=== PATIENT | male | born 1935 | race Caucasian/White ===

== ENCOUNTER 2017-12-15 11:17 | Emergency (ER) | payer MEDICARE ==
[~2017-12-15] VITALS: Ht 180.3 cm; Wt 81.0 kg
[~2017-12-15 11:17] MED LIST: AMIO200 PO; ASPI325T PO; CREO1200 PO; DOCU1CAP39 PO; METO25 PO; OMEP20TA39 PO; SUCR1TAB PO; TAB-TAB PO; TAMS0.4C67 PO; TRAM50TA PO; URSO300C3 PO; WARF1 PO
[2017-12-15 11:24] VITALS: BP 197/83; PULSE 55; RESP 16; TEMP 97.6; O2SAT 99
[2017-12-15] MEDS ORDERED: SODIUM CHLOR 0.9% 1000 ML INJ 1,000 ML IV SCH (11:44)
[2017-12-15] MEDS ORDERED: ONDANSETRON HCL 4 MG/2 ML VIAL IVP ONE (11:45)
[2017-12-15] MEDS ORDERED: DIATRIZOATE MEGLUM/DIATRIZOATE SOD 9 ML CUP PO ONE (11:45)
[2017-12-15] MEDS ORDERED: MORPHINE SULFATE 2 MG/ML INJ IV PUSH ONE ×2 (11:45→13:45)
[2017-12-15] MEDS ORDERED: SODIUM CHLORIDE 0.9% FLUSH 10 ML FLUSH IV FLUSH PRN (11:45)
--- NOTE | 2017-12-15 11:48 | PD ---
HPI Chief Complaint: Flank/Kidney Pain Time Seen by Provider: 11:35 Travel History International Travel<30 days: No Contact w/Intl Traveler<30days: No Traveled to known affect area: No History of Present Illness HPI 82-year-old male with history of CAD, CABG, pancreatic cancer status post Whipple in 2006, here for evaluation of right flank and right lower abdominal pain. Symptoms started this morning. Pain is constant, described as a dull ache, 8 out of 10, no modifying factors. He denies dysuria or hematuria. He had an apparently normal bowel movement this morning. He did have an episode of nausea this morning. He reports having similar pain about a week ago and took a leftover prescription of Flagyl which seemed to treat his symptoms. He is being followed at [facility] for his pancreatic cancer, currently not undergoing any specific treatment. 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) Hiatal Hernia: No Hypertension: Yes Immune Disorder: No Kidney Stones: No Musculoskeletal: Yes (arthroscopic surgery righ t knee) Neurologic: No Psychiatric: No Reproductive: No Respiratory: No Migraines: No Radiation Therapy: Yes (prostate) Renal Failure: No Seizures: No Sickle Cell Disease: No Sleep Apnea: No Thyroid Disease: No Ulcer: No Past Surgical History Abdominal Surgery: Yes (/hernia repair) AICD: No Arteriovenous Shunt: No Body Medical Devices: TAURUS pumps to sternum and left leg Cardiac Surgery: Yes (CABG) Ear Surgery: No Endocrine Surgery: No Eye Surgery: No Genitourinary Surgery: Yes (turp,radiation to prostate) Insulin Pump: No Joint Replacement: No Oral Surgery: Yes (wisdom teeth removed) Pacemaker: No Thoracic Surgery: Yes (sternotomy) Social History Alcohol Use: No Tobacco Use: No Substance Use: No Allergies-Medications (Allergen,Severity, Reaction): Coded Allergies: penicillin G (Unverified Allergy, Unknown, 12/15/17) Reported Meds & Prescriptions Reported Meds & Active Scripts Active Reported Non-Aspirin Extra Strength (Acetaminophen) 500 Mg Tab 1,000 Mg PO Q4-6H PRN Vitamin B-12 (Cyanocobalamin) 1,000 Mcg Tab 1,000 Mcg PO DAILY Multiple Vitamin 1 Tab 1 Tab PO DAILY Align (Lactobacillus Rhamnosus (GG)) 4 Mg (1 Billion Cell) Cap 4 Mg PO DAILY Welchol (Colesevelam HCl) 625 Mg Tab 625 Mg PO DAILY Aspirin Low Dose (Aspirin) 81 Mg Chew 81 Mg CHEW DAILY Bupropion HCl 75 Mg Tab 75 Mg PO DAILY Tamsulosin (Tamsulosin HCl) 0.4 Mg Cap 0.4 Mg PO HS Metoprolol Tartrate 25 Mg Tab 25 Mg PO BID Losartan (Losartan Potassium) 100 Mg Tab 100 Mg PO HS Pravastatin 40 Mg Tab 40 Mg PO HS Ursodiol 300 Mg Cap 300 Mg PO DAILY Sucralfate 1 Gram Tab 1 Gm PO QID on empty stomach Creon (Pancrelipase) 36,000-114,000-180,000 Units Cap 2 Cap PO TIDPC Omeprazole 20 Mg Tab 20 Mg PO DAILY Review of Systems Except as stated in HPI: all other systems reviewed are Neg Physical Exam Narrative GENERAL: Well-developed, well-nourished, comfortable, no apparent distress. SKIN: Focused skin assessment warm/dry. No rash. HEAD: Atraumatic. Normocephalic. EYES: Pupils equal and round. No scleral icterus. No injection or drainage. ENT: Mucous membranes pink and moist. NECK: Trachea midline. No JVD. CARDIOVASCULAR: Regular rate and rhythm. No murmur appreciated. RESPIRATORY: No accessory muscle use. Clear to auscultation. Breath sounds equal bilaterally. GASTROINTESTINAL: Abdomen soft, non-tender, nondistended. Reducible umbilical hernia. MUSCULOSKELETAL: No obvious deformities. No clubbing. No cyanosis. No edema. NEUROLOGICAL: Awake and alert. No obvious cranial nerve deficits. Motor grossly within normal limits. Normal speech. PSYCHIATRIC: Appropriate mood and affect; insight and judgment normal. Data Data Last Documented VS Vital Signs Date Time Temp Pulse Resp B/P (MAP) Pulse Ox O2 Delivery O2 Flow Rate FiO2 12/15/17 14:01 68 18 192/94 (126) 99 Room Air 12/15/17 11:24 97.6 Orders Orders Complete Blood Count With Diff (12/15/17 11:44) Comprehensive Metabolic Panel (12/15/17 11:44) Lipase (12/15/17 11:44) Lactic Acid (12/15/17 11:44) Prothrombin Time / Inr (Pt) (12/15/17 11:44) Act Partial Throm Time (Ptt) (12/15/17 11:44) Urinalysis - C+S If Indicated (12/15/17 11:44) Ct Abd/Pel W Iv Contrast(Rout) (12/15/17 11:44) Iv Access Insert/Monitor (12/15/17 11:44) Ecg Monitoring (12/15/17 11:44) Oximetry (12/15/17 11:44) Ondansetron Inj (Zofran Inj) (12/15/17 11:45) Sodium Chlor 0.9% 1000 Ml Inj (Ns 1000 M (12/15/17 11:44) Sodium Chloride 0.9% Flush (Ns Flush) (12/15/17 11:45) Morphine Inj (Morphine Inj) (12/15/17 11:45) Diatrizoate Liq ( Gastroview Liq) (12/15/17 11:45) Oral Contrast - Adult (12/15/17 12:13) Morphine Inj (Morphine Inj) (12/15/17 13:45) Iohexol 350 Inj (Omnipaque 350 Inj) (12/15/17 14:01) Urinary Catheter Insert/Apply (12/15/17 14:15) Labs Laboratory Tests Test 12/15/17 11:40 12/15/17 11:48 12/15/17 12:00 Urine Collection Type CLEAN CATCH Urine Color YELLOW Urine Turbidity CLEAR Urine pH 6.0 Urine Specific [place] 1.015 Urine Protein NEG mg/dL Urine Glucose (UA) NEG mg/dL Urine Ketones NEG mg/dL Urine Occult Blood NEG Urine Nitrite NEG Urine Bilirubin NEG Urine Urobilinogen 0.2 MG/DL Urine Leukocyte Esterase NEG Urine Squamous Epithelial Cells 0-5 /hpf Urine Amorphous Sediment FEW Microscopic Urinalysis Comment CULT NOT INDICATED Urine Collection Time 1140 White Blood Count 4.2 TH/MM3 Red Blood Count 3.86 MIL/MM3 Hemoglobin 11.9 GM/DL Hematocrit 36.3 % Mean Corpuscular Volume 94.0 FL Mean Corpuscular Hemoglobin 30.7 PG Mean Corpuscular Hemoglobin Concent 32.7 % Red Cell Distribution Width 15.0 % Platelet Count 160 TH/MM3 Mean Platelet Volume 8.1 FL Neutrophils (%) (Auto) 84.7 % Lymphocytes (%) (Auto) 9.2 % Monocytes (%) (Auto) 5.4 % Eosinophils (%) (Auto) 0.3 % Basophils (%) (Auto) 0.4 % Neutrophils # (Auto) 3.6 TH/MM3 Lymphocytes # (Auto) 0.4 TH/MM3 Monocytes # (Auto) 0.2 TH/MM3 Eosinophils # (Auto) 0.0 TH/MM3 Basophils # (Auto) 0.0 TH/MM3 CBC Comment DIFF FINAL Differential Comment Prothrombin Time 10.7 SEC Prothromb Time International Ratio 1.1 RATIO Activated Partial Thromboplast Time 28.2 SEC Blood Urea Nitrogen 14 MG/DL Creatinine 1.10 MG/DL Random Glucose 140 MG/DL Total Protein 7.2 GM/DL Albumin 3.4 GM/DL Calcium Level 9.0 MG/DL Alkaline Phosphatase 348 U/L Aspartate Amino Transf (AST/SGOT) 41 U/L Alanine Aminotransferase (ALT/SGPT) 39 U/L Total Bilirubin 0.6 MG/DL Sodium Level 139 MEQ/L Potassium Level 4.1 MEQ/L Chloride Level 103 MEQ/L Carbon Dioxide Level 29.6 MEQ/L Anion Gap 6 MEQ/L Estimat Glomerular Filtration Rate 64 ML/MIN Lipase 29 U/L Lactic Acid Level 0.9 mmol/L MDM Medical Decision Making Medical Screen Exam Complete: Yes Emergency Medical Condition: Yes Medical Record Reviewed: Yes Differential Diagnosis Nephrolithiasis, ureterolithiasis, pyelonephritis, colitis, AAA, dissection, mesenteric ischemia, bowel obstruction Narrative Course Vital signs reviewed. CBC: WBC 4.2, hemoglobin 11.9, hematocrit 36.3, platelets 160. CMP is essentially unremarkable aside from random glucose 140. Lactic acid is 0.9. Lipase is 29. UA is within normal limits, not suggestive of UTI, no hematuria. CT abdomen pelvis: CONCLUSION: 1. Marked distention of urinary bladder. Mild proximal renal collecting system prominence without timothy hydronephrosis. 2. Anterior abdominal wall varices just superior to the umbilicus. 3. Post surgical findings proximal small bowel and pancreatic head. Pneumobilia is likely related to prior surgery. 4. Borderline splenomegaly. 5. Diffuse atherosclerotic disease. Patient attempted to urinate after the CT scan was read with only about 100 cc of urine output. Harrell catheter was placed with over 1400 cc of clear urine output. Patient had significant relief of symptoms after catheter placement. He will be discharged home with Harrell catheter in place and advised to follow-up with a urologist this week. He will also follow-up with his primary care physician this week. He was advised on when to return to the emergency department. He verbalizes understanding and agreement with plan. Diagnosis Primary Impression: Urinary retention Additional Impression: Abdominal pain Qualified Codes: R10.9 - Unspecified abdominal pain Referrals: Armani Preez MD 3 days Urologist Primary Care Physician 3 days Additional Instructions: Follow-up with your primary care physician this week. Follow-up with urologist Dr. Perez or a urologist of your choice this week. Return to the emergency department for worsening symptoms or any other concerns. Disposition: 01 DISCHARGE HOME Condition: Stable Silverio Romero MD Dec 15, 2017 11:48
[2017-12-15 12:02] LABS: AUTOMATED NEUTROPHIL # 3.6 TH/MM3 (1.8-7.7); BASOPHIL % 0.4 % (0.0-2.0); EOSINOPHIL % 0.3 % (0.0-4.0); HEMATOCRIT 36.3 % (39.0-51.0); HEMOGLOBIN 11.9 GM/DL (13.0-17.0); LYMPH % 9.2 % (9.0-44.0); LYMPHOCYTE # 0.4 TH/MM3 (1.0-4.8); MEAN CORPUSCULAR HEMOGLOBIN 30.7 PG (27.0-34.0); MEAN CORPUSCULAR HGB CONC 32.7 % (32.0-36.0); MEAN PLATELET VOLUME 8.1 FL (7.0-11.0); MONO % 5.4 % (0.0-8.0); MONOCYTE # 0.2 TH/MM3 (0-0.9); NEUT % 84.7 % (16.0-70.0); PLATELET COUNT 160 TH/MM3 (150-450); RED BLOOD COUNT 3.86 MIL/MM3 (4.50-5.90); WHITE BLOOD COUNT 4.2 TH/MM3 (4.0-11.0)
[2017-12-15 12:04] LABS: BILIRUBIN, URINE NEG (NEG); BLOOD, URINE NEG (NEG); GLUCOSE,URINE NEG (NEG); KETONE, URINE NEG (NEG); NITRITE,URINE NEG (NEG); URINE COLOR YELLOW (YELLW/STRAW); URINE LEUKOCYTE ESTERASE NEG (NEG)
[2017-12-15] MEDS ORDERED: LOSA100T PO (12:04)
[2017-12-15] MEDS ORDERED: PANC3600 PO (12:04)
[2017-12-15] MEDS ORDERED: URSO300C2 PO (12:04)
[2017-12-15] MEDS ORDERED: OMEP20TA93 PO (12:04)
[2017-12-15] MEDS ORDERED: PRAV40TA2 PO (12:04)
[2017-12-15] MEDS ORDERED: SUCR1TAB PO (12:04)
[2017-12-15] MEDS ORDERED: VITA10002 PO (12:11)
[2017-12-15] MEDS ORDERED: ASPI81CH6 CHEW (12:11)
[2017-12-15] MEDS ORDERED: TAMS0.4C4 PO (12:11)
[2017-12-15] MEDS ORDERED: COLE625 PO (12:11)
[2017-12-15] MEDS ORDERED: BUPR75TA PO (12:11)
[2017-12-15] MEDS ORDERED: METO25TA3 PO (12:11)
[2017-12-15] MEDS ORDERED: MULTTAB67 PO (12:11)
[2017-12-15] MEDS ORDERED: ALIG4CAP PO (12:11)
[2017-12-15 12:13] LABS: AMORPHOUS SEDIMENT, URINE FEW; SQUAMOUS EPITHELIAL CELL URINE 0-5 /hpf (0-5)
[2017-12-15] MEDS ORDERED: NON-500T10 PO (12:13)
[2017-12-15 12:15] VITALS: BP 182/82; PULSE 69; RESP 18; O2SAT 97
[2017-12-15 12:15] LABS: CHLORIDE 103 MEQ/L (98-107); SODIUM (NA) 139 MEQ/L (136-145)
[2017-12-15 12:19] LABS: ALBUMIN 3.4 GM/DL (3.4-5.0); BICARBONATE 29.6 MEQ/L (21.0-32.0); GLUCOSE,RANDOM 140 MG/DL (74-106)
[2017-12-15 12:20] LABS: BLOOD UREA NITROGEN 14 MG/DL (7-18); INTERNATIONAL NORMALIZED RATIO 1.1 RATIO; PROTHROMBIN TIME - PATIENT 10.7 SEC (9.8-11.6)
[2017-12-15 12:22] LABS: ALT (GPT) 39 U/L (12-78); AST (GOT) 41 U/L (15-37); GLOMERULAR FILTRATION RATE 64 ML/MIN (>89)
[2017-12-15 12:24] LABS: TOTAL BILIRUBIN ADULT 0.6 MG/DL (0.2-1.0); TOTAL PROTEIN 7.2 GM/DL (6.4-8.2)
[2017-12-15 12:25] LABS: ALKALINE PHOSPHATASE 348 U/L (45-117)
[2017-12-15 14:01] VITALS: BP 192/94; PULSE 68; RESP 18; O2SAT 99
[2017-12-15] MEDS ORDERED: IOHEXOL 350 MG/ML 10 ML VIAL (for RAD DIAG) IVCONTRAST ONE (14:01)
--- NOTE | 2017-12-15 14:15 | RADRPT ---
EXAM DATE/TIME: 12/15/2017 13:44 [facility] COMPARISON: No previous studies available for comparison. INDICATIONS : Abdominal pain. IV CONTRAST: 75 cc Omnipaque 350 (iohexol) IV ORAL CONTRAST: Prescribed oral contrast ingested. RADIATION DOSE: 12.61 CTDIvol (mGy) MEDICAL HISTORY : Hypertension. Gastroesophageal reflux disease. SURGICAL HISTORY : CABG Whipple, prostate radiation, sternotomy,TURP ENCOUNTER: Initial ACUITY: 1 day PAIN SCALE: 7/10 LOCATION: Left lower quadrant TECHNIQUE: Volumetric scanning of the abdomen and pelvis was performed. Using automated exposure control and ad justment of the mA and/or kV according to patient size, radiation dose was kept as low as reasonably achievable to obtain optimal diagnostic quality images. DICOM format image data is available electro nically for review and comparison. FINDINGS: LOWER LUNGS: The visualized lower lungs are clear. LIVER: Pneumobilia noted. Status post cholecystectomy. Liver is homogeneous and within normal limits. SPLEEN: Borderline enlarged spleen measuring 12.4 cm in craniocaudal dimension. No focal mass identified. PANCREAS: Post surgical findings in the region of pancreatic head. No focal mass identified. KIDNEYS: Bilateral renal cysts. Mild prominence of the proximal renal collecting systems without timothy hydrone phrosis. No hydroureter. ADRENAL GLANDS: Within normal limits. VASCULAR: Diffuse atherosclerotic disease. Abdominal aorta diameter within normal limits. BOWEL/MESENTERY: Postsurgical findings of proximal small bowel consistent with the patient's history of Whipple proced ure. No evidence of bowel dilatation. No free air or free fluid. Appendix is not identified. ABDOMINAL WALL: Several periumbilical prominent vessels are identified. There is bulging of the midline anterior abdo jaden contents this region without distinct defect in the abdominal wall this region. There is a 2.5 cm fat-containing periumbilical hernia that does not involve bowel. RETROPERITONEUM: There is no lymphadenopathy. BLADDER: Marked distention of the urinary bladder. REPRODUCTIVE: Within normal limits. INGUINAL: There is no lymphadenopathy or hernia. MUSCULOSKELETAL: Degenerative findings of the lumbar spine. CONCLUSION: 1. Marked distention of urinary bladder. Mild proximal renal collecting system prominence without fra nk hydronephrosis. 2. Anterior abdominal wall varices just superior to the umbilicus. 3. Post surgical findings proximal small bowel and pancreatic head. Pneumobilia is likely related to prior surgery. 4. Borderline splenomegaly. 5. Diffuse atherosclerotic disease. Aftab Chavis MD on December 15, 2017 at 14:05 Board Certified Radiologist. This report was verified electronically.
[2017-12-15 14:56] VITALS: BP 183/83; PULSE 76; RESP 18; O2SAT 98
[2017-12-16] MEDS ORDERED: HYDR-3516 PO (14:56)
[2017-12-16] MEDS ORDERED: CIPR-9 PO (14:56)
== END 2017-12-15 15:20 | disposition home or self-care (01) ==
LOC: PHED 11:17
DX: R33.9 Retention of urine, unspecified (principal); R10.9 Unspecified abdominal pain; R11.0 Nausea; I10 Essential (primary) hypertension; K21.9 Gastro-esophageal reflux disease without esophagitis; C25.9 Malignant neoplasm of pancreas, unspecified; Z86.79 Personal history of other diseases of the circulatory system; Z87.39 Personal history of other diseases of the musculoskeletal system and connective tissue; Z87.448 Personal history of other diseases of urinary system
CPT/HCPCS: 51702; 74177; 80053; 81001; 83605; 83690; 85025; 85610; 85730; 96361; 96374; 96375; 96376; 99284; J2270; J2405; J7030; Q9963; Q9967

== ENCOUNTER 2017-12-16 13:36 | Emergency (ER) | payer MEDICARE ==
[~2017-12-16] VITALS: Ht 180.3 cm; Wt 80.0 kg
[~2017-12-16 13:36] MED LIST changes: +ALIG4CAP PO; +ASPI81CH6 CHEW; +BUPR75TA PO; +COLE625 PO; +LOSA100T PO; +METO25TA3 PO; +MULTTAB67 PO; +NON-500T10 PO; +OMEP20TA93 PO; +PANC3600 PO; +PRAV40TA2 PO; +TAMS0.4C4 PO; +URSO300C2 PO; +VITA10002 PO
[2017-12-16 13:41] VITALS: BP 141/73; PULSE 46; RESP 18; TEMP 98.4; O2SAT 98
[2017-12-16] MEDS ORDERED: ACETAMINOPHEN/HYDROcodone 325 MG/5 MG TAB PO ONE (14:00)
[2017-12-16 14:35] LABS: BLOOD, URINE LARGE (NEG); GLUCOSE,URINE NEG (NEG); KETONE, URINE NEG (NEG); NITRITE,URINE NEG (NEG); PH, URINE 5.5 (5.0-8.5); URINE COLOR YELLOW (YELLW/STRAW); URINE LEUKOCYTE ESTERASE SMALL (NEG)
[2017-12-16 14:43] LABS: BILIRUBIN, URINE NEG (NEG)
[2017-12-16 14:52] LABS: AMORPHOUS SEDIMENT, URINE FEW; BACTERIA, URINE FEW /hpf; SQUAMOUS EPITHELIAL CELL URINE 0-5 /hpf (0-5); WHITE BLOOD CELL CLUMPS FEW
[2017-12-16] MEDS ORDERED: CIPR-9 PO (14:56)
[2017-12-16] MEDS ORDERED: HYDR-3516 PO (14:56)
--- NOTE | 2017-12-16 15:01 | RADRPT ---
EXAM DATE/TIME: 12/16/2017 14:22 [facility] COMPARISON: No previous studies available for comparison. INDICATIONS : low back pain, no known injury MEDICAL HISTORY : Carcinoma, pancreas. SURGICAL HISTORY : CABG. ENCOUNTER: Initial ACUITY: 3 days PAIN SCORE: 6/10 LOCATION: Bilateral low back FINDINGS: There is a mild levoscoliosis. Moderate to advanced degenerative disc disease in the lumbar spine. Mo derate facet arthropathy. No acute fracture. CONCLUSION: 1. Mild scoliosis. Moderate to advanced degenerative disc disease. Minimal retrolisthesis of L5 on S1 . No acute fracture. Harinder Collins MD on December 16, 2017 at 14:57 Board Certified Radiologist. This report was verified electronically.
--- NOTE | 2017-12-16 15:01 | PD ---
HPI Chief Complaint: Back/ Neck Pain or Injury Time Seen by Provider: 13:45 Travel History International Travel<30 days: No Contact w/Intl Traveler<30days: No Traveled to known affect area: No History of Present Illness HPI 32-year-old male that presents to the ED for evaluation of back pain. Patient has had back pain for a couple days. Patient was seen actually here yesterday have full workup that was essentially unremarkable other than for urinary retention. Patient was put in a Harrell catheter in per patient the pain has improved but continues to have the pain and he was told that if the pain doesn' t improve to come here. He denies any other symptoms. No bowel movement issues. No chest pain or shortness of breath. Pain is mainly to the right side and radiates to the abdomen. Has an allergy to penicillin. Has not seen anybody for this. No numbness, tilling, weakness. Per patient pain is 6 out of 10. Patient has not taken anything for pain at and Tylenol but states that this is not helping him much. He states that he was given IM morphine shot that did help with his pain. 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) Headaches: No Hiatal Hernia: No Hypertension: Yes Immune Disorder: No Kidney Stones: No Musculoskeletal: Yes (arthroscopic surgery righ t knee) Neurologic: No Psychiatric: No Reproductive: No Respiratory: No Migraines: No Radiation Therapy: Yes (prostate) Renal Failure: No Seizures: No Sickle Cell Disease: No Sleep Apnea: No Thyroid Disease: No Ulcer: No Past Surgical History Abdominal Surgery: Yes (/hernia repair) AICD: No Arteriovenous Shunt: No Body Medical Devices: TAURUS pumps to sternum and left leg Cardiac Surgery: Yes (CABG) Ear Surgery: No Endocrine Surgery: No Eye Surgery: No Genitourinary Surgery: Yes (turp,radiation to prostate) Insulin Pump: No Joint Replacement: No Oral Surgery: Yes (wisdom teeth removed) Pacemaker: No Thoracic Surgery: Yes (sternotomy) Other Surgery: Yes (cabgx5/whipple/turp/hernia repair/radiation prostate) Social History Alcohol Use: Yes Tobacco Use: No Substance Use: No Allergies-Medications (Allergen,Severity, Reaction): Coded Allergies: penicillin G (Unverified Allergy, Unknown, 12/16/17) Reported Meds & Prescriptions Reported Meds & Active Scripts Active Cipro (Ciprofloxacin HCl) 500 Mg Tab 500 Mg PO BID 7 Days Hydrocodone-Acetaminophen 5-325 mg Tab 1 Tab PO Q6H PRN Reported Non-Aspirin Extra Strength (Acetaminophen) 500 Mg Tab 1,000 Mg PO Q4-6H PRN Vitamin B-12 (Cyanocobalamin) 1,000 Mcg Tab 1,000 Mcg PO DAILY Multiple Vitamin 1 Tab 1 Tab PO DAILY Align (Lactobacillus Rhamnosus (GG)) 4 Mg (1 Billion Cell) Cap 4 Mg PO DAILY Welchol (Colesevelam HCl) 625 Mg Tab 625 Mg PO DAILY Aspirin Low Dose (Aspirin) 81 Mg Chew 81 Mg CHEW DAILY Bupropion HCl 75 Mg Tab 75 Mg PO DAILY Tamsulosin (Tamsulosin HCl) 0.4 Mg Cap 0.4 Mg PO HS Metoprolol Tartrate 25 Mg Tab 25 Mg PO BID Losartan (Losartan Potassium) 100 Mg Tab 100 Mg PO HS Pravastatin 40 Mg Tab 40 Mg PO HS Ursodiol 300 Mg Cap 300 Mg PO DAILY Sucralfate 1 Gram Tab 1 Gm PO QID on empty stomach Creon (Pancrelipase) 36,000-114,000-180,000 Units Cap 2 Cap PO TIDPC Omeprazole 20 Mg Tab 20 Mg PO DAILY Review of Systems Except as stated in HPI: all other systems reviewed are Neg Physical Exam Narrative GENERAL: SKIN: Warm and dry. HEAD: Atraumatic. Normocephalic. EYES: Pupils equal and round. No scleral icterus. No injection or drainage. ENT: No nasal bleeding or discharge. Mucous membranes pink and moist. NECK: Trachea midline. No JVD. CARDIOVASCULAR: Regular rate and rhythm. RESPIRATORY: No accessory muscle use. Clear to auscultation. Breath sounds equal bilaterally. GASTROINTESTINAL: Abdomen soft, non-tender, nondistended. Hepatic and splenic margins not palpable. MUSCULOSKELETAL: Extremities without clubbing, cyanosis, or edema. No obvious deformities. Patient has no reproducible pain on the lumbar, thoracic, cervical spine tenderness to palpation. Most of everything the musculature on the right side of the lower back. 2+ pulses bilaterally. Sensation intact bilaterally. No obvious rash or deformity noted. NEUROLOGICAL: Awake and alert. No obvious cranial nerve deficits. Motor grossly within normal limits. Five out of 5 muscle strength in the arms and legs. Normal speech. PSYCHIATRIC: Appropriate mood and affect; insight and judgment normal. Data Data Last Documented VS Vital Signs Date Time Temp Pulse Resp B/P (MAP) Pulse Ox O2 Delivery O2 Flow Rate FiO2 12/16/17 13:41 98.4 46 18 141/73 (95) 98 Orders Orders Urinalysis - C+S If Indicated (12/16/17 13:49) Spine, Lumbar Comp W/Obliq (12/16/17 ) Acetamin-Hydrocod 325-5 Mg (Rowley 5-325 (12/16/17 14:00) Spine, Thoracic-Ap/Lat/Sw(3vw) (12/16/17 ) Urine Culture (12/16/17 13:55) Labs Laboratory Tests Test 12/16/17 13:55 Urine Collection Type CLEAN CATCH Urine Color YELLOW Urine Turbidity CLOUDY Urine pH 5.5 Urine Specific [place] GREATER/EQUAL 1.030 Urine Protein 100 mg/dL Urine Glucose (UA) NEG mg/dL Urine Ketones NEG mg/dL Urine Occult Blood LARGE Urine Nitrite NEG Urine Bilirubin NEG Urine Urobilinogen MG/DL Urine Leukocyte Esterase SMALL Urine RBC 50-99 /hpf Urine WBC 25-49 /hpf Urine WBC Clumps FEW Urine Squamous Epithelial Cells 0-5 /hpf Urine Amorphous Sediment FEW Urine Bacteria FEW /hpf Microscopic Urinalysis Comment CULTURE INDICATED Urine Collection Time 1358 MDM Medical Decision Making Medical Screen Exam Complete: Yes Emergency Medical Condition: Yes Medical Record Reviewed: Yes Interpretation(s) X-ray of the lumbar spine and thoracic spine show only chronic changes but no sign of acute disease. Urine shows signs of infection Differential Diagnosis Fracture versus sprain versus strain versus urinary retention versus UTI Narrative Course 82-year-old male that presents to the ED for evaluation of lower back pain. Patient was properly examined and was found to have signs and symptoms which appear to be consistent with muscle scale pain. I did review patient's medical records and actually Dr. Romero for evaluation yesterday came here and evaluate him as well. She recommends at this time x-rays and urine to check x-ray patient does have a urinary tract infection as patient has a Harrell. She was given Lortab for pain. X-rays were negative for acute bony injury. Urine did show signs of possible infection. We'll start patient on Cipro and treat with recurrent for pain. Patient disposition is to come back. Follow-up with PCP. See ED worsening symptoms. Diagnosis Primary Impression: Back pain Qualified Codes: M54.5 - Low back pain Additional Impression: UTI (urinary tract infection) Qualified Codes: N30.01 - Acute cystitis with hematuria Patient Instructions: General Instructions, Narcotic given in the ED Additional Instructions: Take medications as prescribed. Follow-up with PCP. See ED for any worsening symptoms. Do not drink or drive while taking pain medication. Apply ice or heat as needed for pain Med/Other Pt SpecificInfo: Prescription(s) given Scripts Ciprofloxacin (Cipro) 500 Mg Tab 500 MG PO BID for Infection for 7 Days, #14 TAB 0 Refills Prov: Silverio Romero MD 12/16/17 Hydrocodone-Acetaminophen (Hydrocodone-Acetaminophen) 5-325 mg Tab 1 TAB PO Q6H Y for PAIN, #12 TAB 0 Refills Prov: Silverio Romero MD 12/16/17 Disposition: 01 DISCHARGE HOME Condition: Jorge L Markham Dec 16, 2017 15:01
--- NOTE | 2017-12-16 15:05 | RADRPT ---
EXAM DATE/TIME: 12/16/2017 14:22 [facility] COMPARISON: No previous studies available for comparison. INDICATIONS : Pain MEDICAL HISTORY : Carcinoma, pancreas. SURGICAL HISTORY : CABG. ENCOUNTER: Initial ACUITY: 3 days PAIN SCORE: 0/10 LOCATION: Bilateral upper back FINDINGS: There is moderate degenerative disc disease. Minimal scoliosis. Previous CABG. No acute fracture. CONCLUSION: 1. Moderate degenerative disc disease. No acute fracture. Postoperative CABG. Harinder Collins MD on December 16, 2017 at 15:01 Board Certified Radiologist. This report was verified electronically.
== END 2017-12-16 15:25 | disposition home or self-care (01) ==
LOC: PHEFT 13:36
DX: M54.5 Low back pain (principal); N39.0 Urinary tract infection, site not specified; I48.91 Unspecified atrial fibrillation; I10 Essential (primary) hypertension; Z79.01 Long term (current) use of anticoagulants
CPT/HCPCS: 72072; 72110; 81001; 87086; 99284